=== PATIENT | female | born 1990 | race African-American/Black ===

== ENCOUNTER 2019-05-31 14:44 | Emergency (ER) | payer OTHER ==
[~2019-05-31] VITALS: Ht 172.7 cm; Wt 136.1 kg
--- NOTE | 2019-05-31 15:28 | Diagnostic Imaging Report ---
EXAM: SHOULDER 2+VW RT - [facility] DATE: 05/31/2019 12:00 AM INDICATION: Shoulder pain COMPARISON: None FINDINGS: Internal rotation, external rotation, and scapular Y views are obtained of the right shoulder. There is no evidence for acute fracture or dislocation. The glenohumeral joint and AC joint are grossly unremarkable. The surrounding soft tissues are unremarkable without evidence for radiopaque foreign body. The visualized right hemithorax is unremarkable. IMPRESSION: No acute radiographic abnormality identified within the right shoulder. Signed by: Dr. John Hickman MD on 05/31/2019 3:25 PM
== END 2019-05-31 15:41 | disposition home or self-care (01) ==
LOC: FSED 14:44
DX: M25.511 Pain in right shoulder (principal); M77.9 Enthesopathy, unspecified; M75.91 Shoulder lesion, unspecified, right shoulder
CPT/HCPCS: 99283